=== PATIENT | male | born 1945 | race Caucasian/White ===

== ENCOUNTER 2017-08-04 12:00 | Day surgery (SDC) | payer MEDICARE ==
[~2017-08-04 12:00] MED LIST: Acetaminophen TAB* 325 MG PO PRN; Buffered Lidocaine 0.9% SYRIN* 5 ML/SYR SYRINGE INTRADERM ONE
[2017-08-04] MEDS ORDERED: Midazolam* 1 MG/ML 5 ML VIAL (5 MG) ONE (13:47)
[2017-08-04 15:10] VITALS: BP 124/95
[2017-08-04] MEDS ORDERED: Tetracaine 0.5% OPTH.SOL 4 ML* 1 DROP BTL ONE (15:12)
[2017-08-04] MEDS ORDERED: Ketorolac 0.5% OPHTH (NF) 0.5 % 5 ML BTL ONE (15:12)
[2017-08-04] MEDS ORDERED: acetaZOLAMIDE TAB* 250 MG ONE (15:12)
[2017-08-04] MEDS ORDERED: Cyclopentolate 1% OPTH.SOL* 2 ML BTL ONE (15:12)
[2017-08-04] MEDS ORDERED: Tropicamide 1% OPTH.SOL* BTL ONE (15:12)
[2017-08-04] MEDS ORDERED: Neomycin/Polymy/Dex OPHTH.OIN* 3.5 GM ONE (15:12)
[2017-08-04] MEDS ORDERED: Lidocaine 1%* 5 ML VIAL ONE (15:12)
[2017-08-04] MEDS ORDERED: Povidone Iodine 5% OPTH* 30 ML BTL ONE (15:12)
[2017-08-04] MEDS ORDERED: Phenylephrine 2.5% OPTH.SOL* 2 ML BTL ONE (15:12)
--- NOTE | 2017-08-05 11:40 | OP ---
DATE OF OPERATION: 08/04/17 - [facility] DATE OF : 49 SURGEON: Tony Louis MD. ANESTHESIA: Monitored anesthesia care. PRE-OP DIAGNOSIS: Cataract, right eye. POST-OP DIAGNOSIS: Cataract, right eye. OPERATIVE PROCEDURE: Extracapsular cataract extraction of the right eye with intraocular lens implant. IMPLANTS: SN60WF 15.5 diopter lens to the right eye. COMPLICATIONS: None. DESCRIPTION OF PROCEDURE: The patient was given phenylephrine 2.5% and cyclopentolate 1% eyedrops to the operative eye in the preoperative area. The patient was brought to the operating room where a time-out was taken to identify the correct patient, site and side of surgery. The patient's right eye was prepped and draped in a usual sterile fashion with 5% Betadine. A second timeout was taken to verify the correct patient, site and side of surgery , and correct lens selection. A lid speculum was placed to the left eye. A 1- mm paracentesis blade was used to make a clear corneal incision in the superotemporal position. Preservative-free 1% lidocaine was injected into the anterior chamber. DisCoVisc was then injected into the anterior chamber. A 2.75 -mm keratome blade was used to make a triplanar incision in the inferotemporal position. A cystotome initiated a capsulorrhexis, which was completed with Utrata forceps in a continuous and curvilinear manner. Hydrodissection of the lens was performed with BSS on a cannula. The lens could be spun in the capsular bag. The phacoemulsification handpiece was used with divide-and- conquer technique to remove the nucleus in its entirety with 13.65 CDE. The I/ A handpiece then removed the residual cortical lens material. DisCoVisc was injected to inflate the capsular bag. The planned SN60WF 15.5 diopter lens was injected in the capsular bag. The residual DisCoVisc was removed from the eye with the I/A handpiece. The corneal incisions were hydrated and no leaks occurred at physiologic pressure around 20 mmHg per palpation. The lid speculum was removed and drapes removed. Maxitrol ointment was placed to the surface of the operative eye. An adhesive patch and shield was placed on the operative eye. The patient was taken to the postoperative area in stable condition. [id number]/[facility] #: [id number]
== END 2017-08-04 15:12 | disposition home or self-care (01) ==
LOC: OREAST 12:00
PROVIDERS: ATTEND Student in an Organized Health Care Education/Training Program
DX: H25.811 Combined forms of age-related cataract, right eye (principal); H34.8112 Central retinal vein occlusion, right eye, stable; H40.31 Glaucoma secondary to eye trauma, right eye; I10 Essential (primary) hypertension; E78.5 Hyperlipidemia, unspecified; C91.10 Chronic lymphocytic leukemia of B-cell type not having achieved remission; G47.33 Obstructive sleep apnea (adult) (pediatric); E66.01 Morbid (severe) obesity due to excess calories; M19.90 Unspecified osteoarthritis, unspecified site; Z85.46 Personal history of malignant neoplasm of prostate
CPT/HCPCS: A9270-GY; J2250; V2632

== ENCOUNTER 2019-11-01 11:36 | Inpatient (IN) ==
[2019-11-01] MEDS: NS 0.9% IV ONE ×2 (12:14→13:08)
[2019-11-01] MEDS ORDERED: NS 0.9% 1000 ml BAG 1,000 ML IV ONE ×3 (12:21→20:00)
[2019-11-01 12:51] LABS: Hematocrit 38 % (42-52); Hemoglobin 13.3 g/dL (14.0-18.0); Mean Corpuscular HGB Conc 35 g/dL (31-36); Mean Corpuscular Hemoglobin 31 pg (27-31); Mean Corpuscular Volume 88 fL (80-94); Red Cell Distribution Width 14 % (10-15)
[2019-11-01] MEDS ORDERED: Piperacillin/Tazobac ADVAN 3.375 GM in NS 0.9% 100 ml BAG 100 ML IVPB ONE (12:55)
[2019-11-01 12:56] LABS: Activated Partial Thrombo Time 28.3 seconds (26.0-38.0); INR 1.31 (0.82-1.09)
[2019-11-01 13:44] LABS: ABS Lymphocytes 7.4 10^3/ul (1.0-4.8); ABS Monocytes 0.3 10^3/ul (0-0.8); ABS Neutrophils 7.3 10^3/ul (1.5-7.7); Eosinophil % 0.1 %; Lymphocyte % 49.3 %; Mean Platelet Volume 10.5 fL (7.4-10.4); Nucleated Red Blood Cells % 0.2; Platelet Count 95 10^3/uL (150-450)
[2019-11-01] MEDS ORDERED: Vancomycin 1,750 MG in NS 0.9% 250 ml 250 ML IVPB ONE (14:00)
[2019-11-01 14:03] LABS: Albumin 3.4 g/dL (3.2-5.2); Anion Gap 12 mmol/L (2-11); CO2 Carbon Dioxide 22 mmol/L (22-32); Calcium 8.4 mg/dL (8.6-10.3); Chloride 97 mmol/L (101-111); Sodium 131 mmol/L (135-145)
[2019-11-01 14:07] LABS: Troponin I 1.88 ng/mL (<0.03)
[2019-11-01 14:09] LABS: ALT 42 U/L (7-52); AST 43 U/L (13-39); Albumin/Globulin Ratio 1.6 (1-3); Alkaline Phosphatase 56 U/L (34-104); BUN/Creatinine Ratio 31.3 (8-20); Blood Urea Nitrogen 50 mg/dL (6-24); EGFR African American 51.7 (>60); EGFR Non-African American 42.7 (>60); Globulin 2.1 g/dL (2-4); Glucose 116 mg/dL (70-100); Total Protein 5.5 g/dL (6.4-8.9)
[2019-11-01] MEDS: KCL 20 MEQ/100 ML IVPREMIX 20 MEQ/100 ML BAG IV SCH ×2 (14:43→17:48)
[2019-11-01] MEDS ORDERED: Al Hydrox/Mg Hydrox/Simet LIQ 30 ML UDC PO PRN (14:56)
[2019-11-01 14:58] LABS: C Reactive Protein 123.47 mg/L (<8.01)
[2019-11-01] MEDS ORDERED: NS 0.9% 1000 ml BAG 1,000 ML IV SCH (15:00)
[2019-11-01 15:01] LABS: Urine Appearance Cloudy; Urine Bilirubin Negative (Negative); Urine Blood 2+ (Negative); Urine Color Amber; Urine Glucose Negative (Negative); Urine Ketones Negative (Negative); Urine Nitrite Negative (Negative); Urine Protein Negative (Negative); Urine Urobilinogen Negative (Negative)
[2019-11-01 15:02] LABS: Urine Bacteria 1+ (Absent); Urine Red Blood Cell 2+(6-10/hpf) (Absent); Urine Squamous Epithelial Cell Present (Absent); Urine White Blood Cell 1+(6-10/hpf) (Absent)
[2019-11-01] MEDS ORDERED: Vancomycin 1,000 MG in NS 0.9% 250 ml 250 ML IVPB ONE (15:02)
[2019-11-01] MEDS ORDERED: Iodixanol (CONTRAST) 320 MG/ML 100 ML SDV IV ONE (15:30)
[2019-11-01] MEDS ORDERED: Vancomycin per Pharmacy 1 EA NOTE FOLLOW UP SCH (16:00)
[2019-11-01] MEDS ORDERED: Perflutren Lipid Microsphere 3 ML VIAL ONE (16:06)
[2019-11-01 19:42] LABS: Troponin I 0.83 ng/mL (<0.03)
[2019-11-01] MEDS ORDERED: cefTRIAXone 1 gm/50 mL NS BAG 1 GM/50 ML BAG IVPB SCH (20:00)
[2019-11-01] MEDS: Timolol 0.5% OPTH.SOL BTL RIGHT EYE SCH (20:25)
[2019-11-01] MEDS: Heparin 5000 UNITS/ML 1 mL VIAL SUBCUT SCH (20:26)
[2019-11-01] MEDS ORDERED: Ondansetron 4 mg VIAL 2 MG/ML 2 ml VIAL ONE (23:08)
[2019-11-01] MEDS ORDERED: Ondansetron 4 mg VIAL 2 MG/ML 2 ml VIAL IV ONE (23:24)
[2019-11-02 00:19] LABS: Troponin I 0.67 ng/mL (<0.03)
[2019-11-02] MEDS: Vancomycin(*) 1,250 MG IV IVPB SCH ×2 (03:30→14:50)
[2019-11-02] MEDS ORDERED: Ondansetron 4 mg VIAL 2 MG/ML 2 ml VIAL ONE (05:25)
[2019-11-02] MEDS ORDERED: Ondansetron 4 mg VIAL 2 MG/ML 2 ml VIAL IV PRN (05:25)
[2019-11-02] MEDS: Heparin 5000 UNITS/ML 1 mL VIAL SUBCUT SCH ×3 (05:31→22:44)
[2019-11-02 06:08] LABS: ALT 36 U/L (7-52); Albumin/Globulin Ratio 1.4 (1-3); Alkaline Phosphatase 38 U/L (34-104); Blood Urea Nitrogen 29 mg/dL (6-24); CO2 Carbon Dioxide 21 mmol/L (22-32); Calcium 7.5 mg/dL (8.6-10.3); Chloride 105 mmol/L (101-111); EGFR Non-African American 85.1 (>60); Globulin 2.1 g/dL (2-4); Glucose 91 mg/dL (70-100); Sodium 133 mmol/L (135-145); Total Protein 5.1 g/dL (6.4-8.9)
[2019-11-02 06:11] LABS: Hematocrit 35 % (42-52); Hemoglobin 11.9 g/dL (14.0-18.0); Mean Corpuscular HGB Conc 34 g/dL (31-36); Mean Corpuscular Hemoglobin 31 pg (27-31); Mean Corpuscular Volume 90 fL (80-94); Mean Platelet Volume 10.9 fL (7.4-10.4); Platelet Count 88 10^3/uL (150-450); Red Blood Count 3.86 10^6 /uL (4.18-5.48); Red Cell Distribution Width 14 % (10-15); White Blood Count 13.4 10^3/uL (3.5-10.8)
[2019-11-02] MEDS: CEFEPIME* 2 GM in Dextrose* 50 ml IV SCH ×2 (06:34→20:06)
[2019-11-02 07:07] LABS: Anion Gap 7 mmol/L (2-11)
[2019-11-02 07:16] LABS: ABS Lymphocytes 7.5 10^3/ul (1.0-4.8); ABS Monocytes 0.5 10^3/ul (0-0.8); ABS Neutrophils 5.2 10^3/ul (1.5-7.7); Eosinophil % 0.2 %; Lymphocyte % 56.4 %; Nucleated Red Blood Cells % 0.2
[2019-11-02] MEDS ORDERED: Lactated Ringers 1000 ml BAG 1,000 ML IV SCH (08:00)
[2019-11-02] MEDS ORDERED: Potassium Chlor 20 meq TAB.ER PO ONE (08:55)
[2019-11-02] MEDS: Timolol 0.5% OPTH.SOL BTL RIGHT EYE SCH ×2 (09:15→20:06)
[2019-11-02] MEDS ORDERED: Phenylephrine IV 50 MG in NS 0.9% 250 ml 245 ML IV SCH (10:00)
[2019-11-02] MEDS ORDERED: Hydrocortisone INJ 100 MG/2ML 2 ML VIAL IV ONE (10:00)
[2019-11-02] MEDS ORDERED: Bumetanide IV 10 MG in Premix IV 0 ML IV SCH (15:00)
[2019-11-02] MEDS: Hydrocortisone INJ 100 MG/2ML 2 ML VIAL IV SCH (17:00)
[2019-11-02] MEDS ORDERED: Potassium Chloride LIQUID 20 MEQ/15 ML LIQUID PO ONE (17:48)
[2019-11-02 18:00] LABS: BUN/Creatinine Ratio 25.8 (8-20); Calcium 8.1 mg/dL (8.6-10.3); EGFR African American 101.7 (>60); Potassium 3.6 mmol/L (3.5-5.0)
[2019-11-03] MEDS: Hydrocortisone INJ 100 MG/2ML 2 ML VIAL IV SCH ×2 (02:08→09:09)
[2019-11-03] MEDS: Vancomycin(*) 1,250 MG IV IVPB SCH (02:08)
[2019-11-03 04:55] LABS: Hematocrit 33 % (42-52); Hemoglobin 11.1 g/dL (14.0-18.0); Mean Corpuscular HGB Conc 34 g/dL (31-36); Mean Corpuscular Hemoglobin 30 pg (27-31); Mean Corpuscular Volume 89 fL (80-94); Mean Platelet Volume 10.5 fL (7.4-10.4); Platelet Count 97 10^3/uL (150-450); Red Blood Count 3.71 10^6 /uL (4.18-5.48); Red Cell Distribution Width 14 % (10-15)
[2019-11-03 05:13] LABS: Albumin/Globulin Ratio 1.4 (1-3); BUN/Creatinine Ratio 31.3 (8-20); Calcium 8.1 mg/dL (8.6-10.3); Globulin 2.1 g/dL (2-4); Magnesium 2.3 mg/dL (1.9-2.7); Phosphorus 1.8 mg/dL (2.5-5.0); Potassium 3.9 mmol/L (3.5-5.0); Total Bilirubin 0.9 mg/dL (0.2-1.0); Total Protein 5.1 g/dL (6.4-8.9)
[2019-11-03] MEDS: Heparin 5000 UNITS/ML 1 mL VIAL SUBCUT SCH ×3 (06:11→20:14)
[2019-11-03 06:33] LABS: ABS Basophils 0.1 10^3/ul (0-0.2); ABS Lymphocytes 10.5 10^3/ul (1.0-4.8); ABS Monocytes 0.5 10^3/ul (0-0.8); ABS Neutrophils 6.9 10^3/ul (1.5-7.7); Lymphocyte % 58.5 %
[2019-11-03] MEDS: CEFEPIME* 2 GM in Dextrose* 50 ml IV SCH ×2 (08:16→20:14)
[2019-11-03] MEDS: Timolol 0.5% OPTH.SOL BTL RIGHT EYE SCH ×2 (08:16→20:17)
[2019-11-03] MEDS: Aspirin EC 81 mg TAB.EC (enteric coated) PO SCH (08:16)
[2019-11-03] MEDS: Gemfibrozil 600 mg PO SCH (08:16)
[2019-11-03] MEDS ORDERED: Potassium Phosphate IV 15 MMOLE in NS 0.9% 250 ml 250 ML IVPB ONE (08:39)
[2019-11-03] MEDS ORDERED: Vancomycin Trough Check NOTE FOLLOW UP ONE (14:00)
[2019-11-04] MEDS: Heparin 5000 UNITS/ML 1 mL VIAL SUBCUT SCH ×3 (05:21→21:52)
[2019-11-04 06:16] LABS: Hematocrit 33 % (42-52); Hemoglobin 11.2 g/dL (14.0-18.0); Mean Corpuscular HGB Conc 34 g/dL (31-36); Mean Corpuscular Hemoglobin 30 pg (27-31); Mean Corpuscular Volume 88 fL (80-94); Mean Platelet Volume 10.1 fL (7.4-10.4); Platelet Count 107 10^3/uL (150-450); Red Blood Count 3.73 10^6 /uL (4.18-5.48); Red Cell Distribution Width 14 % (10-15); White Blood Count 18.7 10^3/uL (3.5-10.8)
[2019-11-04 06:37] LABS: Albumin 2.9 g/dL (3.2-5.2); Albumin/Globulin Ratio 1.4 (1-3); BUN/Creatinine Ratio 27.3 (8-20); Calcium 8.2 mg/dL (8.6-10.3); EGFR African American 120.2 (>60); EGFR Non-African American 99.3 (>60); Globulin 2.1 g/dL (2-4); Potassium 3.4 mmol/L (3.5-5.0); Total Bilirubin 0.8 mg/dL (0.2-1.0)
[2019-11-04 07:13] LABS: ABS Eosinophils 0.1 10^3/ul (0-0.6); ABS Monocytes 0.5 10^3/ul (0-0.8); ABS Neutrophils 4.1 10^3/ul (1.5-7.7); Eosinophil % 0.5 %; Lymphocyte % 74.6 %; Nucleated Red Blood Cells % 0.1
[2019-11-04] MEDS: CEFEPIME* 2 GM in Dextrose* 50 ml IV SCH ×2 (08:43→20:29)
[2019-11-04] MEDS: Gemfibrozil 600 mg PO SCH (08:44)
[2019-11-04] MEDS: Aspirin EC 81 mg TAB.EC (enteric coated) PO SCH (08:44)
[2019-11-04] MEDS: Timolol 0.5% OPTH.SOL BTL RIGHT EYE SCH ×2 (08:46→21:52)
[2019-11-04] MEDS ORDERED: Iohexol 300 (CONTRAST) 10 ML SDV IV ONE (09:33)
[2019-11-04] MEDS ORDERED: Potassium Acid Phos 500 mg TAB PO ONE (18:52)
[2019-11-04] MEDS ORDERED: Potassium Chlor 20 meq TAB.ER PO ONE (18:52)
[2019-11-05] MEDS: Heparin 5000 UNITS/ML 1 mL VIAL SUBCUT SCH (06:13)
[2019-11-05 06:38] LABS: Hematocrit 34 % (42-52); Mean Corpuscular HGB Conc 35 g/dL (31-36); Mean Corpuscular Hemoglobin 31 pg (27-31); Mean Corpuscular Volume 88 fL (80-94); Mean Platelet Volume 9.6 fL (7.4-10.4); Platelet Count 132 10^3/uL (150-450); Red Blood Count 3.84 10^6 /uL (4.18-5.48); Red Cell Distribution Width 13 % (10-15)
[2019-11-05 07:00] LABS: Albumin/Globulin Ratio 1.5 (1-3); BUN/Creatinine Ratio 18.7 (8-20); Calcium 8.4 mg/dL (8.6-10.3); EGFR African American 123.9 (>60); EGFR Non-African American 102.4 (>60); Potassium 3.5 mmol/L (3.5-5.0)
[2019-11-05] MEDS: Aspirin EC 81 mg TAB.EC (enteric coated) PO SCH (07:29)
[2019-11-05] MEDS: Timolol 0.5% OPTH.SOL BTL RIGHT EYE SCH (07:30)
[2019-11-05] MEDS: Gemfibrozil 600 mg PO SCH (07:30)
[2019-11-05] MEDS: CEFEPIME* 2 GM in Dextrose* 50 ml IV SCH (07:37)
[2019-11-05 07:45] VITALS: BP 131/64
[2019-11-05 08:32] LABS: ABS Basophils 0.1 10^3/ul (0-0.2); ABS Eosinophils 0.2 10^3/ul (0-0.6); ABS Lymphocytes 15.7 10^3/ul (1.0-4.8); ABS Monocytes 0.5 10^3/ul (0-0.8); ABS Neutrophils 3.8 10^3/ul (1.5-7.7); Eosinophil % 0.7 %; Lymphocyte % 77.6 %; Nucleated Red Blood Cells % 0.2
[2019-11-08 14:19] LABS: White Blood Count 20.3 10^3/uL (3.5-10.8)
== END 2019-11-05 12:35 | disposition home or self-care (01) | DRG 872 ==
LOC: ED 11:36 → MED 14:56 → ICU 22:10 → MEDTELE 11-03 12:25
PROVIDERS: ADMIT Internal Medicine; ATTEND Internal Medicine

== ENCOUNTER 2020-05-17 13:33 | Inpatient (IN) ==
[2020-05-17] MEDS ORDERED: NS 0.9% 1000 ml BAG 1,000 ML IV.FLUID IV ONE (14:30)
[2020-05-17] MEDS ORDERED: cefTRIAXone 2 GM ADDV.VIAL 2 GM in NS 0.9% 100 ml BAG 100 ML IVPB ONE (15:22)
[2020-05-17 15:24] LABS: Hematocrit 45 % (42-52); Hemoglobin 15.3 g/dL (14.0-18.0); Mean Corpuscular HGB Conc 34 g/dL (31-36); Mean Corpuscular Hemoglobin 30 pg (27-31); Mean Corpuscular Volume 89 fL (80-94); Mean Platelet Volume 9.5 fL (7.4-10.4); Platelet Count 171 10^3/uL (150-450); Red Blood Count 5.09 10^6 /uL (4.18-5.48); Red Cell Distribution Width 14 % (10-15); White Blood Count 28.2 10^3/uL (3.5-10.8)
[2020-05-17 15:45] LABS: Troponin I 0.01 ng/mL (<0.03)
[2020-05-17 15:50] LABS: Albumin 4.4 g/dL (3.2-5.2); Albumin/Globulin Ratio 1.6 (1-3); BUN/Creatinine Ratio 18.6 (8-20); C Reactive Protein 64.51 mg/L (<8.01); Calcium 9.8 mg/dL (8.6-10.3); EGFR African American 92.1 (>60); EGFR Non-African American 76.1 (>60); Globulin 2.8 g/dL (2-4); Potassium 4.1 mmol/L (3.5-5.0); Total Protein 7.2 g/dL (6.4-8.9)
[2020-05-17 16:06] LABS: ABS Basophils 0.1 10^3/ul (0-0.2); ABS Lymphocytes 17.9 10^3/ul (1.0-4.8); ABS Monocytes 0.8 10^3/ul (0-0.8); ABS Neutrophils 9.4 10^3/ul (1.5-7.7); ABS Nucleated RBC 0.1 10^3/ul; Lymphocyte % 63.7 %; Nucleated Red Blood Cells % 0.4
[2020-05-17 16:14] LABS: Activated Partial Thrombo Time 31.3 seconds (26.0-38.0); INR 1.17 (0.82-1.09)
[2020-05-17 17:00] LABS: Indirect Bilirubin 2.5 mg/dL (0.3-1.0)
[2020-05-17 17:52] LABS: Urine Appearance Cloudy; Urine Bilirubin Negative (Negative); Urine Blood 2+ (Negative); Urine Color Yellow; Urine Glucose Negative (Negative); Urine Ketones Negative (Negative); Urine Nitrite Positive (Negative); Urine Protein 2+(100 mg/dL) (Negative); Urine Specific Gravity 1.013 (1.010-1.030); Urine Urobilinogen Negative (Negative)
[2020-05-17 17:59] LABS: Urine Bacteria 2+ (Absent); Urine Red Blood Cell 2+(6-10/hpf) (Absent); Urine Squamous Epithelial Cell Present (Absent); Urine White Blood Cell 3+(>20/hpf) (Absent)
[2020-05-17] MEDS: Ondansetron 4 mg VIAL 2 MG/ML 2 ml VIAL IV PRN (18:53)
[2020-05-17] MEDS: Enoxaparin 40 MG/0.4 ML SYR SUBCUT SCH (22:56)
[2020-05-17] MEDS: Gemfibrozil 600 mg PO SCH (22:56)
[2020-05-17] MEDS: Timolol 0.5% OPTH.SOL BTL RIGHT EYE SCH (22:58)
[2020-05-18] MEDS: Ondansetron 4 mg VIAL 2 MG/ML 2 ml VIAL IV PRN ×2 (04:40→08:34)
[2020-05-18 05:10] LABS: Hematocrit 42 % (42-52); Hemoglobin 14.1 g/dL (14.0-18.0); Mean Corpuscular HGB Conc 34 g/dL (31-36); Mean Corpuscular Hemoglobin 30 pg (27-31); Mean Corpuscular Volume 90 fL (80-94); Mean Platelet Volume 9.6 fL (7.4-10.4); Platelet Count 129 10^3/uL (150-450); Red Blood Count 4.65 10^6 /uL (4.18-5.48); Red Cell Distribution Width 14 % (10-15); White Blood Count 25.8 10^3/uL (3.5-10.8)
[2020-05-18 05:26] LABS: Albumin 3.9 g/dL (3.2-5.2); Albumin/Globulin Ratio 1.6 (1-3); BUN/Creatinine Ratio 22.4 (8-20); EGFR Non-African American 75.2 (>60); Globulin 2.4 g/dL (2-4); Potassium 3.8 mmol/L (3.5-5.0); Total Protein 6.3 g/dL (6.4-8.9)
[2020-05-18 05:35] LABS: ABS Lymphocytes 17.3 10^3/ul (1.0-4.8); ABS Monocytes 1.1 10^3/ul (0-0.8); ABS Neutrophils 7.3 10^3/ul (1.5-7.7); Eosinophil % 0.1 %; Nucleated Red Blood Cells % 0.1
[2020-05-18] MEDS: Gemfibrozil 600 mg PO SCH ×2 (08:33→20:01)
[2020-05-18] MEDS: Timolol 0.5% OPTH.SOL BTL RIGHT EYE SCH ×2 (08:34→22:55)
[2020-05-18] MEDS: cefTRIAXone 1 gm/50 mL NS BAG 1 GM/50 ML BAG IVPB SCH (16:25)
[2020-05-18] MEDS: Enoxaparin 40 MG/0.4 ML SYR SUBCUT SCH (20:01)
[2020-05-19 06:16] LABS: Hematocrit 38 % (42-52); Mean Corpuscular HGB Conc 34 g/dL (31-36); Mean Corpuscular Hemoglobin 30 pg (27-31); Mean Corpuscular Volume 88 fL (80-94); Mean Platelet Volume 9.1 fL (7.4-10.4); Platelet Count 115 10^3/uL (150-450); Red Blood Count 4.32 10^6 /uL (4.18-5.48); Red Cell Distribution Width 14 % (10-15); White Blood Count 19.5 10^3/uL (3.5-10.8)
[2020-05-19 06:35] LABS: Albumin 3.7 g/dL (3.2-5.2); Albumin/Globulin Ratio 1.6 (1-3); BUN/Creatinine Ratio 22.4 (8-20); Calcium 8.9 mg/dL (8.6-10.3); EGFR African American 107.2 (>60); EGFR Non-African American 88.6 (>60); Globulin 2.3 g/dL (2-4); Indirect Bilirubin 1.4 mg/dL (0.3-1.0); Potassium 3.5 mmol/L (3.5-5.0); Total Bilirubin 1.6 mg/dL (0.2-1.0)
[2020-05-19 06:44] LABS: ABS Basophils 0.1 10^3/ul (0-0.2); ABS Eosinophils 0.1 10^3/ul (0-0.6); ABS Lymphocytes 13.4 10^3/ul (1.0-4.8); Eosinophil % 0.3 %; Lymphocyte % 68.7 %; Nucleated Red Blood Cells % 0.1
[2020-05-19] MEDS: Timolol 0.5% OPTH.SOL BTL RIGHT EYE SCH ×2 (11:12→22:03)
[2020-05-19] MEDS: Gemfibrozil 600 mg PO SCH ×2 (11:12→22:05)
[2020-05-19] MEDS: cefTRIAXone 1 gm/50 mL NS BAG 1 GM/50 ML BAG IVPB SCH (15:42)
[2020-05-19] MEDS: Enoxaparin 40 MG/0.4 ML SYR SUBCUT SCH (22:04)
[2020-05-20 06:09] LABS: Hematocrit 41 % (42-52); Hemoglobin 13.3 g/dL (14.0-18.0); Mean Corpuscular HGB Conc 33 g/dL (31-36); Mean Corpuscular Hemoglobin 30 pg (27-31); Mean Corpuscular Volume 90 fL (80-94); Mean Platelet Volume 9.9 fL (7.4-10.4); Platelet Count 124 10^3/uL (150-450); Red Blood Count 4.52 10^6 /uL (4.18-5.48); Red Cell Distribution Width 14 % (10-15); White Blood Count 16.4 10^3/uL (3.5-10.8)
[2020-05-20 06:32] LABS: Albumin 3.8 g/dL (3.2-5.2); Albumin/Globulin Ratio 1.5 (1-3); BUN/Creatinine Ratio 16.7 (8-20); Calcium 9.1 mg/dL (8.6-10.3); EGFR African American 108.7 (>60); EGFR Non-African American 89.8 (>60); Globulin 2.6 g/dL (2-4); Indirect Bilirubin 0.7 mg/dL (0.3-1.0); Potassium 3.7 mmol/L (3.5-5.0); Total Protein 6.4 g/dL (6.4-8.9)
[2020-05-20 06:52] LABS: ABS Eosinophils 0.1 10^3/ul (0-0.6); ABS Monocytes 0.7 10^3/ul (0-0.8); ABS Neutrophils 3.7 10^3/ul (1.5-7.7); Eosinophil % 0.5 %; Nucleated Red Blood Cells % 0.1
[2020-05-20 08:31] VITALS: BP 119/69
[2020-05-20] MEDS: Gemfibrozil 600 mg PO SCH (10:10)
[2020-05-20] MEDS: Timolol 0.5% OPTH.SOL BTL RIGHT EYE SCH (10:10)
== END 2020-05-20 12:25 | disposition home or self-care (01) | DRG 872 ==
LOC: MED 13:33 → ED 13:33 → MED 22:42
PROVIDERS: ADMIT Internal Medicine; ATTEND Internal Medicine